=== PATIENT | female | born 1990 | race African-American/Black ===

== ENCOUNTER 2017-08-29 15:34 | Emergency (ER) | payer SELFPAY ==
[2017-08-29] MEDS ORDERED: METOCLOPRAMIDE HCL INJ/PF 10 MG/2 ML SDV IM ONE (16:16)
[2017-08-29] MEDS ORDERED: DIPHENHYDRAMINE HCL 50 MG/ML VIAL IM ONE (16:16)
--- NOTE | 2017-08-29 16:23 | ER Document Report ---
ED Headache - General Chief Complaint: Headache Stated Complaint: HEADACHE Time Seen by Provider: 08/29/17 16:06 Mode of Arrival: Ambulatory Information source: Patient TRAVEL OUTSIDE OF THE [place] IN LAST 30 DAYS: No - HPI Patient complains to provider of: Headache Notes: Patient is here with complaints of headache. The patient is 17 weeks . This is her fifth . She has had no problems with this . She has a history of headaches in the past, but states she has not had one in a while. States that this headache was gradual onset 3 days ago and has progressively worsened over time. It is generalized. She does have some mild photophobia with it. She has nausea, and states that she was vomiting a few days ago, but the vomiting has stopped. She denies head injury. She denies blood thinners. She denies fever. She denies any blurred or loss vision. She denies any unilateral numbness, tingling, weakness. No chest pain or shortness of breath. No rash. She denies any history of preeclampsia. No leg swelling. She has no other complaints at this time. She states she has taken Tylenol without relief. - Related Data Allergies/Adverse Reactions: No Known Allergies Allergy (Unverified 08/29/17 15:39) Past Medical History - Social History Smoking Status: Unknown if Ever Smoked Family History: Reviewed & Not Pertinent Review of Systems - Review of Systems -: Yes All other systems reviewed and negative Physical Exam - Notes Notes: GENERAL: alert, cooperative, nontoxic, no distress. HEAD: normocephalic, atraumatic EYES: conjunctiva pink without discharge, no external redness or swelling. Pupils are equal, round, reactive to light. EARS: no external swelling, no external redness NOSE: atraumatic, no external swelling MOUTH/THROAT: mucous membranes moist and pink, posterior pharynx without erythema, swelling, exudate. No trismus or drooling. NECK: soft, supple, full range of motion, no meningismus. CHEST: no distress, lungs clear and equal throughout. No wheezing, rales, rhonchi. CARDIAC: regular rate and rhythm, no murmur, normal capillary refill, normal pulses. No peripheral edema noted. BACK: full range of motion, no CVA tenderness. EXTREMITIES: full range of motion of all extremities. No redness, no swelling. NEURO: alert and oriented x 3, cranial nerves II through XII are grossly intact. Upper and lower extremities are equal throughout. Normal sensation. No focal deficits, full range of motion of all extremities. normal finger to nose. PYSCH: appropriate mood, affect. Patient is cooperative. SKIN: pink, warm, dry, no rash. Course - Re-evaluation Re-evalutation: 08/29/17 16:21 Patient is nontoxic appearing with stable vitals. The patient is here with complaints of headache. She is 17 weeks . She denies any head injury. She is on no blood thinners. She denies fever. She is a prior history of headaches. This was not a sudden onset, thunderclap headache. It was gradual and progressively worsening. She has a nonfocal neurological exam. No signs of subarachnoid hemorrhage or meningitis. She has no leg swelling. She is not hypertensive. Patient will be given a shot of Reglan and Benadryl here in emergency department will be discharged home with instructions to follow-up with her WIRELESS TELEGRAPHER as scheduled in 2 days. She is to follow-up sooner if she develops worsening pain, fever, numbness, tingling, weakness, fever, neck stiffness, persistent vomiting, or for any further concerns. The patient is noted to have elevated blood pressure during today's emergency department visit. The patient was informed of this finding. The patient was instructed that this may be related to pre-hypertension and requires further evaluation with a primary care provider. The patient has no hypertensive symptoms at this time. The patient's emergency department workup and current diagnosis were explained to the patient and or family. Follow-up instructions were provided. Medications if prescribed were discussed. Instructions for when to return to the emergency department including specific worrisome symptoms were discussed with the patient and/or family. Discharge - Discharge Clinical Impression: Headache Qualifiers: Headache type: unspecified Headache chronicity pattern: acute headache Intractability: not intractable Qualified Code(s): R51 - Headache Condition: Stable Disposition: HOME, SELF-CARE Instructions: Intravenous Compazine for Headaches ([facility]), Headache ([facility]), Use of Diphenhydramine Additional Instructions: You can continue to take Tylenol as needed for pain. Drink plenty fluids. Follow-up with your doctor as scheduled in 2 days. Follow-up sooner for worsening pain, fever, blurred or loss vision, numbness, tingling, weakness, persistent vomiting, or for any further concerns. Your blood pressure was elevated during today's visit. Have this rechecked with your doctor. Forms: Elevated Blood Pressure Referrals: [facility] [Provider Group] - Follow up as needed
[2017-08-29 16:44] VITALS: BP 134/69
== END 2017-08-29 16:44 | disposition home or self-care (01) ==
LOC: ER 15:34
DX: O26.92 Pregnancy related conditions, unspecified, second trimester (principal); R51 Headache; R11.0 Nausea; Z3A.17 17 weeks gestation of pregnancy
CPT/HCPCS: 99283; 96372; J1200; J2765

== ENCOUNTER 2017-10-15 01:06 | Emergency (ER) | payer MEDICAID ==
[2017-10-15 02:27] LABS: ABSOLUTE LYMPHOCYTES (AUTO) 1.2 10^3/uL (0.5-4.7); ABSOLUTE MONOCYTES (AUTO) 0.5 10^3/uL (0.1-1.4); BASOPHILS % (AUTO) 0.5 % (0-2); EOSINOPHILS % (AUTO) 0.4 % (0-6); HEMATOCRIT 38.2 % (36.0-47.0); HEMOGLOBIN 13.3 g/dL (12.0-15.5); LYMPHOCYTES % (AUTO) 12.2 % (13-45); MEAN CORPUSCULAR HEMOGLOBIN 32.9 pg (27.0-33.4); MEAN CORPUSCULAR HGB CONC 34.8 g/dL (32.0-36.0); MEAN CORPUSCULAR VOLUME 95 fl (80-97); MONOCYTES % (AUTO) 5.3 % (3-13); PLATELET COUNT 271 10^3/uL (150-450); RED BLOOD COUNT 4.04 10^6/uL (3.72-5.28); RED CELL DISTRIBUTION WIDTH 13.4 % (11.5-14.0); SEGMENTED NEUTROPHILS % (AUTO) 81.6 % (42-78); TOTAL CELLS COUNTED % (AUTO) 100 %; WHITE BLOOD COUNT 9.8 10^3/uL (4.0-10.5)
[2017-10-15] MEDS ORDERED: NORMAL SALINE 1000 ML 1,000 ML IV ONE ×2 (02:27→04:40)
[2017-10-15] MEDS ORDERED: METOCLOPRAMIDE HCL INJ/PF 10 MG/2 ML SDV IV ONE (02:27)
--- NOTE | 2017-10-15 02:28 | ER Document Report ---
ED GI/ - General Chief Complaint: Nausea/Vomiting/Diarrhea Stated Complaint: VOMITING STOMACH PAIN Time Seen by Provider: 10/15/17 02:20 Notes: Patient is a 27-year-old female, at 23 weeks gestation by ultrasound, the comes emergency department for chief complaint of vomiting, diarrhea, dehydration. She states she has vomited 5 times today, nonbloody, she had 3 episodes of loose stools, nonbloody. She denies fever or chills, obvious sick contacts, recent antibiotics, suspicious foods, or recent travel. She is on vitamins, takes no other daily medications, denies any medical history including surgeries. TRAVEL OUTSIDE OF THE [place] IN LAST 30 DAYS: No - Related Data Allergies/Adverse Reactions: No Known Allergies Allergy (Verified 10/15/17 02:28) Past Medical History - General Information source: Patient - Social History Smoking Status: Never Smoker Frequency of alcohol use: None Drug Abuse: None Lives with: Family Family History: Reviewed & Not Pertinent - Medical History Medical History: Negative Renal/ Medical History: Denies: Hx Peritoneal Dialysis Surgical Hx: Negative - Immunizations Immunizations up to date: Yes Hx Diphtheria, Pertussis, Tetanus Vaccination: Yes Review of Systems - Review of Systems Constitutional: No symptoms reported EENT: No symptoms reported Cardiovascular: No symptoms reported Respiratory: No symptoms reported Gastrointestinal: See HPI Genitourinary: See HPI Female Genitourinary: See HPI Musculoskeletal: No symptoms reported Skin: No symptoms reported Hematologic/Lymphatic: No symptoms reported Neurological/Psychological: No symptoms reported Physical Exam - Vital signs Vitals: Temp Pulse Resp BP Pulse Ox 98.9 F 105 H 18 121/68 97 10/15/17 01:20 10/15/17 01:20 10/15/17 01:20 10/15/17 01:20 10/15/17 01:20 - Notes Notes: GENERAL: Alert, interacts well. No acute distress. HEAD: Normocephalic, atraumatic. EYES: Pupils equal, round, and reactive to light. Extraocular movements intact. ENT: Oral mucosa dry, tongue midline. NECK: Full range of motion. Supple. Trachea midline. LUNGS: Clear to auscultation bilaterally, no wheezes, rales, or rhonchi. No respiratory distress. HEART: Mild tachycardia, normal rhythm. No murmur ABDOMEN: Gravid abdomen. There is some mild tenderness in the left upper and left lower quadrant, otherwise unremarkable. No guarding, no rigidity. EXTREMITIES: Moves all 4 extremities spontaneously. No edema, normal radial and dorsalis pedis pulses bilaterally. No cyanosis. BACK: no cervical, thoracic, lumbar midline tenderness. No saddle anesthesia, normal distal neurovascular exam. NEUROLOGICAL: Alert and oriented x3. Normal speech. [cranial nerves II through XII grossly intact]. PSYCH: Normal affect, normal mood. SKIN: Warm, dry, normal turgor. No rashes or lesions noted. Course - Re-evaluation Re-evalutation: Patient is very well-appearing on exam, borderline tachycardia, slight tenderness in the left abdomen. After medications for nausea, symptoms improved , give Pepcid, symptoms resolved, tolerating p.o. without difficulty. CBC, chemistry unremarkable. With her vomiting, diarrhea, workup, assessment I suspect this is a viral syndrome. Ultrasound/Doppler done at bedside, shows good movement, Doppler at 156 beats per minute. Urine shows 80 ketones, elevated specific gravity, possible urinary tract infection. Discussed with patient. Will place on Keflex, provided with nausea medications, discussed evaluation by PROTEOMICS SCIENTIST upstairs because of abdominal pain and her being 20+ weeks but patient refuses. She states she is ready to go home. Discussed return precautions in detail. Stable at time of discharge. - Vital Signs Vital signs: Temp Pulse Resp BP Pulse Ox 98.6 F 92 21 H 114/66 99 10/15/17 04:52 10/15/17 04:52 10/15/17 04:52 10/15/17 04:52 10/15/17 04:52 - Laboratory Result Diagrams: 10/15/17 02:04 10/15/17 02:04 Laboratory results interpreted by me: 10/15/17 10/15/17 10/15/17 01:24 02:04 02:04 Seg Neutrophils % 81.6 H Lymphocytes % 12.2 L AST 5 L Urine Protein 30 H Urine Ketones 80 H Ur Leukocyte Esterase SMALL H Urine Ascorbic Acid 40 H Urine HCG, Qual POSITIVE H Discharge - Discharge Clinical Impression: Nausea vomiting and diarrhea, Dehydration Condition: Stable Disposition: HOME, SELF-CARE Additional Instructions: Your workup indicates dehydration. Also indicates developing urinary tract infection. Take Reglan for nausea, you can take Benadryl with this as well for nausea, take Keflex antibiotic as prescribed. Drink plenty fluids and rest. This is probably viral and should resolve with time. Follow-up closely with your primary provider. Return for any concerning or worsening symptoms including severe abdominal pain , spiking fever, uncontrolled vomiting, passing out, or any other concerning or worsening symptoms. Prescriptions: Cephalexin Monohydrate [Keflex 500 mg Capsule] 500 mg PO BID #10 capsule Metoclopramide HCl [Reglan] 5 mg PO ASDIR PRN #30 tablet PRN Reason: Referrals: JOSE GOODSON PA-C [Primary Care Provider] - Follow up as needed
[2017-10-15 02:55] LABS: ALANINE AMINOTRANSFERASE 20 U/L (9-52); ALBUMIN 3.9 g/dL (3.5-5.0); ALKALINE PHOSPHATASE 68 U/L (38-126); ANION GAP 8 (5-19); ASPARTATE AMINO TRANSFERASE 5 U/L (14-36); BILIRUBIN,DIRECT 0.3 mg/dL (0.0-0.4); BILIRUBIN,TOTAL 0.4 mg/dL (0.2-1.3); BLOOD UREA NITROGEN 7 mg/dL (7-20); CARBON DIOXIDE 23 mmol/L (22-30); CHLORIDE 106 mmol/L (98-107); GLUCOSE 84 mg/dL (75-110); POTASSIUM 3.8 mmol/L (3.6-5.0); SODIUM 137.4 mmol/L (137-145)
[2017-10-15 04:18] LABS: AMORPHOUS SEDIMENT,URINE TRACE /HPF; APPEARANCE,URINE TURBID; BILIRUBIN,URINE NEGATIVE (NEGATIVE); COLOR,URINE YELLOW; GLUCOSE, URINE NEGATIVE (NEGATIVE); KETONES,URINE 80 mg/dL (NEGATIVE); LEUKOCYTE ESTERASE,URINE SMALL (NEGATIVE); NITRITE,URINE NEGATIVE (NEGATIVE); PROTEIN,URINE 30 mg/dL (NEGATIVE); URINE SPECIFIC GRAVITY 1.025; UROBILINOGEN,URINE NEGATIVE mg/dL (<2.0)
[2017-10-15] MEDS ORDERED: FAMOTIDINE 20 MG TABLET PO ONE (04:40)
[2017-10-15 04:58] VITALS: BP 114/66
[2017-10-15] MEDS ORDERED: ONDANSETRON ODT 4 MG TAB (6 TAB/ER DISP) PO PRN (05:56)
== END 2017-10-15 06:02 | disposition home or self-care (01) ==
LOC: ER 01:06
DX: O21.9 Vomiting of pregnancy, unspecified (principal); O26.892 Other specified pregnancy related conditions, second trimester; R19.7 Diarrhea, unspecified; E86.0 Dehydration; Z3A.23 23 weeks gestation of pregnancy
CPT/HCPCS: 99284; 96361; 96374; 36415; 85025; 81025; 80053; 81001; J3490; J2765; J7030

== ENCOUNTER 2018-01-29 17:23 | Outpatient (CLI) | payer MEDICAID | END 2018-01-29 19:00 | disposition home or self-care (01) | LOC: LC 17:23 | PROVIDERS: ATTEND Obstetrics & Gynecology | PROC: 4A1HXCZ Monitoring of Products of Conception, Cardiac Rate, External Approach (ICD-10-PCS; principal; 2018-01-29) | DX: O36.5930 Maternal care for other known or suspected poor fetal growth, third trimester, not applicable or unspecified (principal); Z3A.38 38 weeks gestation of pregnancy | CPT/HCPCS: 59025 ==

== ENCOUNTER 2018-02-05 07:00 | Inpatient (IN) | payer MEDICAID ==
[2018-02-05] MEDS ORDERED: OXYTOCIN/NORMAL SALINE 20 UNIT/1,000 ML RTUINJ IV PRN ×2 (07:02→18:25)
[2018-02-05] MEDS ORDERED: RINGERS SOLUTION,LACTATED 300 ML IV ONE (07:02)
[2018-02-05] MEDS ORDERED: PENICILLIN G POTASSIUM 5,000,000 UNIT in DEXTROSE 5%-WATER 100 ML IV ONE (07:02)
[2018-02-05] MEDS ORDERED: PENICILLIN G-K 5 MILLION UNIT VIAL IV ONE (07:15)
[2018-02-05 07:49] LABS: ABSOLUTE EOSINOPHILS # (AUTO) 0.1 10^3/uL (0.0-0.6); ABSOLUTE LYMPHOCYTES (AUTO) 2.1 10^3/uL (0.5-4.7); ABSOLUTE MONOCYTES (AUTO) 0.7 10^3/uL (0.1-1.4); ABSOLUTE NEUT (AUTO) 5.5 10^3/uL (1.7-8.2); BASOPHILS % (AUTO) 0.3 % (0-2); HEMATOCRIT 32.4 % (36.0-47.0); HEMOGLOBIN 11.2 g/dL (12.0-15.5); LYMPHOCYTES % (AUTO) 25.3 % (13-45); MEAN CORPUSCULAR HEMOGLOBIN 31.6 pg (27.0-33.4); MEAN CORPUSCULAR HGB CONC 34.7 g/dL (32.0-36.0); MEAN CORPUSCULAR VOLUME 91 fl (80-97); PLATELET COUNT 318 10^3/uL (150-450); RED BLOOD COUNT 3.55 10^6/uL (3.72-5.28); RED CELL DISTRIBUTION WIDTH 13.8 % (11.5-14.0); SEGMENTED NEUTROPHILS % (AUTO) 65.4 % (42-78); TOTAL CELLS COUNTED % (AUTO) 100 %; WHITE BLOOD COUNT 8.4 10^3/uL (4.0-10.5)
[2018-02-05] MEDS ORDERED: OXYTOCIN 10 UNIT/ML VIAL ONE (07:56)
[2018-02-05] MEDS ORDERED: LIDOCAINE 1% INJ-PF (10 MG/ML) 30 ML SDV ONE (07:56)
[2018-02-05] MEDS ORDERED: MISOPROSTOL 0.2 MG TABLET ONE (07:56)
[2018-02-05] MEDS ORDERED: PENICILLIN G-K 5 MILLION UNIT VIAL ONE ×3 (07:57→15:59)
[2018-02-05] MEDS ORDERED: OXYTOCIN/NORMAL SALINE 20 UNIT/1,000 ML RTUINJ ONE (07:57)
[2018-02-05 08:15] LABS: URINE AMPHETAMINES SCREEN NEGATIVE; URINE BARBITURATES SCREEN NEGATIVE; URINE BENZODIAZEPINES SCREEN NEGATIVE; URINE COCAINE SCREEN NEGATIVE; URINE METHADONE SCREEN NEGATIVE; URINE PHENCYCLIDINE SCREEN NEGATIVE
[2018-02-05 08:24] LABS: URINE MARIJUANA (THC) SCREEN UNCONFIRMED POSITIVE
[2018-02-05] MEDS: RINGERS SOLUTION,LACTATED 1,000 ML IV PRN ×3 (08:24→15:48)
--- NOTE | 2018-02-05 09:38 | Admission Physical ---
Datetime Report Generated by CPN: 02/05/2018 09:37 CURRENT ADMISSION Hx Assessment: The History has been Reviewed and is Current Chief Complaint: Scheduled Induction of Labor Indication for Induction: IUGR Admit Impression : Term, Intrauterine Admit Plan: Admit to Unit; Initiate Labor Induction Protocol ALLERGIES Medication Allergies: No Medication Allergies: No Known Allergies (02/05/2018) Latex: No Latex Allergies Food Allergies: N/A Environmental Allergies: N/A OBSTETRICAL HISTORY EDC: 02/08/2018 00:00 : 5 Para: 2 Term: 2 : 0 SAB: 2 IAB: 0 Ectopic: 0 Livin Cesareans: 0 VBACs: 0 Multiple Births: 0 Gestational Diabetes: No Rh Sensitization: No Incompetent Cervix: No ABEL: No Infertility: No ART Treatment: No Uterine Anomaly: No IUGR: Yes Hx Previous C/S: No Macrosomia: No Hx Loss/Stillborn: No PIH: No Hx : No Placenta Previa/Abruption: No Depression/PP Depression: No PTL/PROM: No Post Hemorrhage: No Current Procedures: Ultrasound; NST Obstetrical History Comments: G1 - 2007, 40 Weeks, 6 lbs 14 oz girl G2 - SAB 2012 G3 - 2013, 39 Weeks, 6 lbs 11 oz girl G4 - SAB 2016 G5 - Current, IUGR SEE RECORDS Alcohol: No Marijuana : Yes Marijuana Frequency: Occasional Last Used: 01/22/2018 00:00 Previous Treatment: None Cocaine: No Other Illicit Drugs: No Cigarettes: Former Smoker. [id number] Cigarette Frequency: < 5 per day Advised to Stop: Yes Cigarette Comments: QUIT WITH MEDICAL HISTORY Diabetes: No Blood Transfusion: No Pulmonary Disease (Asthma, TB): No Breast Disease: No Hypertension: No Compliance Tester Surgery: No Heart Disease: No Hosp/Surgery: Yes Autoimmune Disorder: No Anesthetic Complications: No Kidney Disease: No Abnormal Pap Smear: No Neuro/Epilepsy: No Psychiatric Disorders: No Other Medical Diseases: No Hepatitis/Liver Disease: No Significant Family History: No Varicosities/Phlebitis: No Trauma/Violence : No Thyroid Dysfunction: No Medical History Comments: Childbirth INFECTIOUS HISTORY Gonorrhea: No Genital Herpes: No Chlamydia: Yes Tuberculosis: No Syphilis: No Hepatitis: No HIV/AIDS Exposure: No Rash or Viral Illness: No HPV: No Infectious History Comments: Chlamydia PHYSICAL EXAM General: Normal Heart: Normal Lungs: Normal Genitourinary Exam: Normal Extremities: Normal Pelvic Type: Adequate Physical Exam Comments: proven to 6lbs 8oz Vital Signs: Reviewed VAGINAL EXAM Dilatation: 5 Effacement: 70 Station: -2 Contraction Comments: irregular MEMBRANES Membranes: Intact FETUS A EGA: 39.4 Monitoring: External US FHR- Baseline: 125 Variability: Moderate 6-25bpm Accelerations: 15X15 Decelerations: None FHR Category: Category I Estimated Weight (gm): 2777 Presentation: Vertex Admit Comment: 27yo into L_D for scheduled IOL secondary to IUGR. Pt. is O pos, rubella immune, GBS positive. Hx of chlamydia and no complications with this . late transfer into our office. Denies concerns. Will initiate pitocin induction at this time. First dose of penicillin given. PLANS FOR LABOR AND DELIVERY Labor and Delivery: None Pain Management: Epidural Feeding Preference: Breast Benefit of Breast Feed Discussed: Yes Circumcision: Yes INFORMED CONSENT Assignment: Lora Rashid MD Signature: with User ID: [email or web address] : with User ID: [email or web address]
[2018-02-05] MEDS ORDERED: PENICILLIN G POTASSIUM 2,500,000 UNIT in DEXTROSE 5%-WATER 50 ML IV SCH (11:04)
[2018-02-05] MEDS: PENICILLIN G-K 5 MILLION UNIT VIAL IV SCH ×2 (12:04→16:05)
--- NOTE | 2018-02-05 14:07 | L&D Progress Notes ---
PROGRESS NOTES Datetime Report Generated by CPN: 02/05/2018 14:06 PROGRESS NOTE Impression: Reassuring Heart Rate; Rupture of Membranes Procedures: Artificial ROM; Sterile Vag Exam Plan: Continue Present Management Informed Consent Obtained: Vaginal Delivery; Induction of Labor; Risks, Benefits and Alternatives Discussed Vital Signs : Reviewed; Within Normal Limits Comment: S: breathing with contractions thinking about epidural for pain control soon O:VSS, pit @ 20mu/min, cervix as stated, Cat I tracing A: IUP @ 63v6w-MMK for IUGR-stable, progressing, P:AROM-clear fluid, tolerated procedure well, epidural prn, anticipate delivery VAGINAL EXAM Dilatation: 6 Dilatation: 5 Effacement: 80 Effacement: 70 Station: -1 Station: -2 Contractions: 2-3 Contractions: irregular MEMBRANES Membranes: Ruptured Membranes: Intact Amniotic Fluid Color: Clear FETUS A Monitoring: External US FHR Category: Category I Estimated Weight (gm): 2777 Presentation: Vertex SIGNATURE SIGNATURE: [id number] SIGNATURE: [id number] Assignment: Lora Rashid MD Signature: with User ID: [email or web address] : with User ID: [email or web address]
[2018-02-05] MEDS ORDERED: EPHEDRINE SULFATE INJ 50 MG/1 ML AMPULE ONE (14:17)
[2018-02-05] MEDS ORDERED: BUPIVACAINE HCL 0.5 % INJ/PF 30 ML SDV ONE (14:17)
[2018-02-05] MEDS ORDERED: GLYCOPYRROLATE INJ 0.4 MG/2 ML VIAL ONE (14:18)
[2018-02-05] MEDS ORDERED: FENTANYL/BUPIVACAINE/NS/PF 300 MCG/150 ML RTUINJ EPI ONE (14:19)
--- NOTE | 2018-02-05 16:29 | L&D Progress Notes ---
PROGRESS NOTES Datetime Report Generated by CPN: 02/05/2018 16:29 PROGRESS NOTE Impression Other: IUP @ 03h4-UIJ Procedures: Sterile Vag Exam Plan: Continue Present Management Informed Consent Obtained: Vaginal Delivery; Induction of Labor; Risks, Benefits and Alternatives Discussed Vital Signs : Reviewed; Within Normal Limits Comment: S: reports complete relief of pain w epidural O: VSS, cervix as stated, pit @ 20mu/min A: IUP @ 39w4d IOL for IUGR-progressing, stable P: continue IOL, anticipate delivery VAGINAL EXAM Dilatation: 7 Effacement: 100 Station: 0 Contractions: 2-4 MEMBRANES Amniotic Fluid Color: Clear FETUS A FHR - Baseline: 125 Monitoring: External US Variability: Moderate 6-25bpm Accelerations: 15X15 Decelerations: Early; Variable FHR Category: Category II FETUS C SIGNATURE: [id number];[id number] Assignment: Lora Younger Eure, MD Signature: with User ID: [email or web address] : with User ID: [email or web address]
[2018-02-05] MEDS ORDERED: BENZOCAINE/MENTHOL AEROSOL SPRAY 56 ML TOP PRN (18:25)
[2018-02-05] MEDS ORDERED: ACETAMINOPHEN WITH CODEINE #3 TABLET PO PRN (18:25)
[2018-02-05] MEDS ORDERED: DIBUCAINE 1% OINTMENT 28 GM TP PRN (18:25)
[2018-02-05] MEDS ORDERED: DIPH/PERTUSS(ACELL)/TETANUS VAC/PF 0.5 ML SYR (>=10YO) IM PRN (18:25)
[2018-02-05] MEDS ORDERED: ZOLPIDEM TARTRATE 5 MG TABLET PO PRN (18:25)
--- NOTE | 2018-02-05 18:25 | PDOC DELIVERY SUMMARY ---
Delivery Summary - Maternal Hx : III Hx Para: II Hx # Term Pregnancies: 2 Hx # Pregnancies: 0 Hx Total # of Abortions (Sponateous & Elective): 0 Number of Living Children: 2 SOBEIDA: 02/08/18 Gestational Age: 39.4 Risk Factors: Other - IUGR Ruptured Membranes: AROM Time of Rupture: 13:57 Fluids: Clear - Delivery Labor: Induction Presentation: Vertex Heart Rate Monitoring: Externally Uterine Contraction Monitoring: External Pattern: Late Decels Support Person Present: Yes Location: LD Placenta: Within Normal Limits - small cord Number of Vessels (Cord): 3 Delivery of Placenta Date: 02/05/18 Delivery of Placenta Time: 18:12 Estimated Blood Loss: 400 ml - Medications Type of Anesthesia:: Epidural - Delivery Personnel MD: SAVAGE COOPER
[2018-02-05] MEDS ORDERED: IBUPROFEN 800 MG TABLET ONE (20:58)
[2018-02-05] MEDS: IBUPROFEN 800 MG TABLET PO SCH (21:00)
[2018-02-06] MEDS: ACETAMINOPHEN WITH CODEINE #3 TABLET PO PRN ×2 (00:26→10:07)
[2018-02-06] MEDS: IBUPROFEN 800 MG TABLET PO SCH ×3 (05:50→21:15)
[2018-02-06 08:37] LABS: HEMATOCRIT 28.8 % (36.0-47.0); HEMOGLOBIN 10.2 g/dL (12.0-15.5); MEAN CORPUSCULAR HEMOGLOBIN 32.3 pg (27.0-33.4); MEAN CORPUSCULAR HGB CONC 35.3 g/dL (32.0-36.0); MEAN CORPUSCULAR VOLUME 92 fl (80-97); PLATELET COUNT 258 10^3/uL (150-450); RED BLOOD COUNT 3.15 10^6/uL (3.72-5.28); RED CELL DISTRIBUTION WIDTH 13.6 % (11.5-14.0); WHITE BLOOD COUNT 9.7 10^3/uL (4.0-10.5)
--- NOTE | 2018-02-06 08:59 | PDOC PROGRESS REPORT ---
Subjective-OB Progress Note for:: 02/06/18 Subjective: Doing well, no c/o, family at BS, no circumcision, breast and bottle feeding Physical Exam (OB) Vital Signs: Temp Pulse Resp BP Pulse Ox 97.8 F 69 18 105/55 L 97 02/06/18 07:40 02/06/18 07:40 02/06/18 07:40 02/06/18 07:40 02/06/18 07:40 Intake & Output 02/05/18 02/06/18 02/07/18 06:59 06:59 06:59 Intake Total 2165 Balance 2165 Weight 85.4 kg - PIH/Pre-Eclampsia Clonus: Negative Headache: Absent Epigastric Pain: No Visual Changes: No - Lochia Lochia Amount: Scant < 10 ml Lochia Color: Rubra/Red - Abdomen Description: Soft Hernia Present: No Fundal Description: Firm, Midline Fundal Height: u/u - u/2 Objective-Diagnostic Laboratory: 02/06/18 08:04 02/06/18 08:04 WBC 9.7 RBC 3.15 L Hgb 10.2 L Hct 28.8 L MCV 92 MCH 32.3 MCHC 35.3 RDW 13.6 Plt Count 258 Assessment and Plan(PN) - Assessment and Plan (1) Delivery normal Is this a current diagnosis for this admission?: Yes (2) GBS (group B Streptococcus carrier), +RV culture, currently Is this a current diagnosis for this admission?: Yes (3) Intrauterine growth restriction affecting antepartum care of mother Qualifiers: Fetus number: single or unspecified fetus Qualified Code(s): O36.5990 - Maternal care for other known or suspected poor growth, unspecified trimester, not applicable or unspecified Is this a current diagnosis for this admission?: Yes - Time Spent with Patient Time with patient: Less than 15 minutes Medications reviewed and adjusted accordingly: Yes - Disposition Anticipated Discharge: Home Within: within 24 hours
[2018-02-06] MEDS: SENNOSIDES/DOCUSATE 8.6-50 MG 1 EACH TABLET PO SCH (09:38)
[2018-02-06] MEDS: FERROUS SULFATE 325 MG TABLET PO SCH ×2 (09:38→17:38)
[2018-02-06] MEDS: DOCUSATE SODIUM 100 MG CAPSULE PO SCH ×2 (09:38→17:38)
[2018-02-06] MEDS: PRENATAL VITAMIN W DHA CAPSULE PO SCH (09:38)
[2018-02-07] MEDS: IBUPROFEN 800 MG TABLET PO SCH (05:00)
--- NOTE | 2018-02-07 08:29 | Delivery Summary ---
Del Sum A-C Datetime Report Generated by CPN: 02/07/2018 08:29 DELIVERY PERSONNEL DELIVERY PERSONNEL: [id number] Delivery Doctor:: Lora Rashid MD Labor and Delivery Nurse:: Nicole Edward RN Labor and Delivery Nurse:: Ana Solo RN Nursery Nurse:: Rere Hill RN Process Improvement Analyst/DIGITAL MARKETING LEAD: Arlen Cagle, DIGITAL MARKETING LEAD II MATERNAL INFORMATION Delivery Anesthesia: Epidural Medications After Delivery: Pitocin Bolus-Please Comment; Pitocin Drip 20 Units/1000ml NSS Meds After Delivery Comment: Pitocin 20 units in 1 L NS bolusing per order Maternal Complications: None LABOR SUMMARY EDC: 02/08/2018 00:00 No. Babies in Womb: 1 Attempted: No Labor Anesthesia: Epidural LABOR INFORMATION Reason for Induction: Intrauterine Growth Retardation Onset of Labor: 02/05/2018 09:00 Complete Dilatation: 02/05/2018 17:18 Oxytocin: Induction Group B Beta Strep: Positive Antibiotics # of Doses: 3 Antibiotics Time of Last Dose: 1605 Name of Antibiotic Given: PENICILLIN G Steroids Given: None Reason Steroids Not Administered: Not Applicable MEMBRANES Membranes Rupture Method: Artificial Rupture of Membranes: 02/05/2018 13:57 Length of Rupture (hr): 4.18 Amniotic Fluid Color: Clear Amniotic Fluid Amount: Moderate Amniotic Fluid Odor: None STAGES OF LABOR Stage 1 hr: 8 Stage 1 min: 18 Stage 2 hr: 0 Stage 2 min: 50 Stage 3 hr: 0 Stage 3 min: 4 Total Time in Labor hr: 9 Total Time in Labor min: 12 VAGINAL DELIVERY Episiotomy: None Laceration #1: None Laceration Extension #1: N/A Laceration #2: None Laceration Repair: Not Applicable Sponge Count Correct: N/A Sharps Count Correct: N/A CSECTION DELIVERY Primary Indication: N/A Secondary Indication: N/A CSection Incidence: N/A Labor: N/A Elective: N/A CSection Incision: N/A BABY A INFORMATION Infant Delivery Date/Time: 02/05/2018 18:08 Method of Delivery: Vaginal Method of Delivery: Vaginal Born in Route : No : N/A Forceps: N/A Vacuum Extraction: N/A Shoulder Dystocia : No PRESENTATION/POSITION BABY A Presentation: Cephalic Presentation: Cephalic Presentation: Cephalic Presentation: Cephalic Cephalic Presentation: Vertex Vertex Position: Right Occipital Anterior Breech Presentation: N/A PLACENTA INFORMATION BABY A Placenta Delivery Time : 02/05/2018 18:12 Placenta Method of Delivery: Spontaneous Placenta Status: Delivered SCORES BABY A Heart Rate 1 min: >100 bpm Resp Effort 1 min: Good Cry Reflex Irritability 1 min: Cough or Sneeze or Pulls Away Muscle Tone 1 min: Active Motion Color 1 min: Blue/Pale SCORE 1 MIN: 8 Heart Rate 5 min: >100 bpm Resp Effort 5 min: Good Cry Reflex Irritability 5 min: Cough or Sneeze or Pulls Away Muscle Tone 5 min: Active Motion Color 5 min: Body [place], Extremities Blue SCORE 5 MIN: 9 INFORMATION BABY A Gestational Age at Delivery: 39.4 Gestational Status: Full Term- 39- 40.6 Weeks Outcome : Liveborn Condition : Stable Infant Sex: Male Infant Sex: Male IDENTIFICATION BABY A Verification Date/Time: 02/05/2018 18:24 ID Band Number: [id number] Mother's Name Verified: Yes RN Verifying : Adrien Solo, RN, B. Baidy, RN WEIGHT/LENGTH BABY A Infant Birthweight (gm): 2910 Weight (lb): 6 Weight (oz): 7 Length (in): 19.50 Infant Length (cm): 49.53 CORD INFORMATION BABY A No. Cord Vessels: 3 Nuchal Cord : Around Neck x1, Loose Nuchal Cord- Other: body cord Cord Blood Taken: Yes-For Eval (Mom's Blood Type - or O+) Suction: Mouth; Nose ASSESSMENT BABY A Complications: Multiple Variable Decels Physical Findings at Delivery: Molding of the Head Respirations: Appears Normal Skin to Skin: Yes Boat Engine Mechanic/ALS Called : No Care By: Shaila Lisa RN Transferred To: Remains with Mother BABY B INFORMATION : N/A SIGNATURES Signature: with User ID: [email or web address]
--- NOTE | 2018-02-07 09:33 | PDOC DISCHARGE SUMMARY ---
Final Diagnosis Discharge Date: 02/07/18 - PP Day #2, doing well, no complaints - Final Diagnosis (1) normal course Is this a current diagnosis for this admission?: Yes (2) Tetrahydrocannabinol (THC) use disorder, mild, abuse Is this a current diagnosis for this admission?: Yes (3) Delivery normal Is this a current diagnosis for this admission?: Yes (4) GBS (group B Streptococcus carrier), +RV culture, currently Is this a current diagnosis for this admission?: Yes (5) Intrauterine growth restriction affecting antepartum care of mother Is this a current diagnosis for this admission?: Yes Discharge Data - Discharge Medication Prescriptions: Ibuprofen [Motrin 800 mg Tablet] 800 mg PO Q8 #60 tablet Home Medications: Omeprazole Magnesium [Prilosec Otc] 20 mg PO DAILY 01/29/18 Ibuprofen [Motrin 800 mg Tablet] 800 mg PO Q8 #60 tablet 02/07/18 Reason(s) for Admission: Induction of Labor, Other - for IUGR Procedures: NST, Ultrasound Intrapartum Procedure(s): Spontaneous Vaginal Delivery - Diagnosis Test Laboratory: Temp Pulse Resp BP Pulse Ox 98.3 F 65 18 97/51 L 95 02/07/18 07:31 02/07/18 07:31 02/07/18 07:31 02/07/18 07:31 02/06/18 19:52 02/05/18 02/05/18 02/06/18 07:05 07:28 08:04 RBC 3.55 L 3.15 L Hgb 11.2 L 10.2 L Hct 32.4 L 28.8 L Urine Opiates Screen NEGATIVE - Discharge information/Instructions Discharge Activity: Activity As Tolerated, No Lifting Over 10 Pounds Discharge Diet: As Tolerated, Regular Disposition: HOME, SELF-CARE Follow up with: [facility] in: 4, Weeks
[2018-02-07] MEDS: SENNOSIDES/DOCUSATE 8.6-50 MG 1 EACH TABLET PO SCH (10:31)
[2018-02-07] MEDS: PRENATAL VITAMIN W DHA CAPSULE PO SCH (10:31)
[2018-02-07] MEDS: FERROUS SULFATE 325 MG TABLET PO SCH (10:31)
[2018-02-07] MEDS: DOCUSATE SODIUM 100 MG CAPSULE PO SCH (11:28)
[2018-02-07] MEDS: ACETAMINOPHEN WITH CODEINE #3 TABLET PO PRN (11:30)
[2018-02-07 12:06] VITALS: BP 111/57
== END 2018-02-07 12:45 | disposition home or self-care (01) | DRG 806 ==
LOC: LR 07:00 → 2S 20:25
PROVIDERS: ADMIT Obstetrics & Gynecology; ATTEND Obstetrics & Gynecology
PROC: 10E0XZZ Delivery of Products of Conception, External Approach (ICD-10-PCS; principal; 2018-02-05)
DX: O36.5930 Maternal care for other known or suspected poor fetal growth, third trimester, not applicable or unspecified (principal); O99.324 Drug use complicating childbirth; Z37.0 Single live birth; F12.90 Cannabis use, unspecified, uncomplicated; O99.824 Streptococcus B carrier state complicating childbirth; O99.334 Smoking (tobacco) complicating childbirth; F17.211 Nicotine dependence, cigarettes, in remission; O76 Abnormality in fetal heart rate and rhythm complicating labor and delivery; O69.81X0 Labor and delivery complicated by cord around neck, without compression, not applicable or unspecified; Z3A.39 39 weeks gestation of pregnancy
CPT/HCPCS: 36415; 80307; 80349; 85025; 85027; 86592; 86850; 86900; 86901; 88307; 94760; G0480; J2540; J2590; J3010; J3490

== ENCOUNTER 2019-05-11 06:28 | Emergency (ER) | payer MEDICAID ==
--- NOTE | 2019-05-11 07:31 | ER Document Report ---
ED GI/ - General Chief Complaint: Vaginal Discharge Stated Complaint: ABDOMINAL PAIN/BLEEDING Time Seen by Provider: 05/11/19 07:08 Primary Care Provider: [facility] [Provider Group] - Follow up as needed Mode of Arrival: Ambulatory Information source: Patient Notes: 28-year-old female presented to ED for complaint of dark reddish-brown vaginal discharge spotting with a "knot in her vagina "she states it does not look like an abscess. She states her last menstrual period was April 28. TRAVEL OUTSIDE OF THE [place] IN LAST 30 DAYS: No - HPI Patient complains to provider of: Vaginal bleeding, Vaginal discharge, Vaginal pain Onset: This morning Timing/Duration: Gradual Quality of pain: No pain Severity at maximum: Severe Severity in ED: None Pain Level: Denies Vaginal bleeding (Compared to normal period): Spotting LMP: 04/28/2019 Associated symptoms: None Exacerbated by: Denies Relieved by: Denies Similar symptoms previously: No Recently seen / treated by doctor: No - Related Data Allergies/Adverse Reactions: No Known Allergies Allergy (Verified 02/05/18 07:07) Past Medical History - General Information source: Patient - Social History Smoking Status: Current Every Day Smoker Cigarette use (# per day): Yes - 10 cigarettes a day Smoking Education Provided: Yes - Minutes Frequency of alcohol use: Social Drug Abuse: Marijuana Occupation: [employer] Lives with: Family Family History: Reviewed & Not Pertinent Patient has suicidal ideation: No Patient has homicidal ideation: No - Past Medical History Cardiac Medical History: Reports: None Pulmonary Medical History: Reports: None EENT Medical History: Reports: None Neurological Medical History: Reports: None Endocrine Medical History: Reports: None Renal/ Medical History: Reports: None Malignancy Medical History: Reports: None GI Medical History: Reports: None Musculoskeletal Medical History: Reports Hx Musculoskeletal Trauma Skin Medical History: Reports None Psychiatric Medical History: Reports: None Traumatic Medical History: Reports: Hx Fractures - Clavicle Infectious Medical History: Reports: None Surgical Hx: Negative Past Surgical History: Reports: None - Immunizations Immunizations up to date: Yes Hx Diphtheria, Pertussis, Tetanus Vaccination: Yes - 2017 Review of Systems - Review of Systems Constitutional: No symptoms reported EENT: No symptoms reported Cardiovascular: No symptoms reported Respiratory: No symptoms reported Gastrointestinal: No symptoms reported Genitourinary: No symptoms reported Female Genitourinary: Vaginal discharge, Vaginal bleeding, Other - Left small nonpainful knot to the left labia Musculoskeletal: No symptoms reported Skin: No symptoms reported Hematologic/Lymphatic: No symptoms reported Neurological/Psychological: No symptoms reported Physical Exam - Vital signs Vitals: Temp Pulse Resp BP Pulse Ox 98.1 F 97 16 121/75 98 05/11/19 07:00 05/11/19 07:00 05/11/19 07:00 05/11/19 07:00 05/11/19 07:00 Interpretation: Normal - General General appearance: Appears well, Alert - HEENT Head: Normocephalic, Atraumatic Eyes: Normal Pupils: PERRL - Respiratory Respiratory status: No respiratory distress Chest status: Nontender Breath sounds: Normal Chest palpation: Normal - Cardiovascular Rhythm: Regular Heart sounds: Normal auscultation Murmur: No - Abdominal Inspection: Normal Distension: No distension Bowel sounds: Normal Tenderness: Nontender Organomegaly: No organomegaly - Genitourinary External exam: Other - Small nonpainful knot to the left labia Speculum exam: Vaginal discharge Vaginal bleeding: None Bimanuel exam: Normal - Back Back: Normal, Nontender - Extremities General upper extremity: Normal inspection, Nontender, Normal color, Normal ROM, Normal temperature General lower extremity: Normal inspection, Nontender, Normal color, Normal ROM, Normal temperature, Normal weight bearing. No: Viky's sign - Neurological Neuro grossly intact: Yes Cognition: Normal Orientation: AAOx4 Noelle Coma Scale Eye Opening: Spontaneous [place] Coma Scale Verbal: Oriented Noelle Coma Scale Motor: Obeys Commands Noelle Coma Scale Total: 15 Speech: Normal Motor strength normal: LUE, RUE, LLE, RLE Sensory: Normal - Psychological Associated symptoms: Normal affect, Normal mood - Skin Skin Temperature: Warm Skin Moisture: Dry Skin Color: Normal Course - Re-evaluation Re-evalutation: 05/11/19 09:20 4 discussed with patient and written report labs given to patient. GC and Chlamydia report is not back as yet. Patient was discharged home with instructions to call in a couple hours for the results of the GC and chlamydia. - Vital Signs Vital signs: Temp Pulse Resp BP Pulse Ox 98.1 F 80 16 118/72 99 05/11/19 09:10 05/11/19 09:10 05/11/19 09:10 05/11/19 09:10 05/11/19 09:10 - Laboratory Result Diagrams: 05/11/19 07:42 05/11/19 07:42 Laboratory results interpreted by me: 05/11/19 05/11/19 07:20 07:42 Potassium 3.5 L Leukocyte Esterase Rfl TRACE H Discharge - Discharge Clinical Impression: Bartholin cyst with no abscess, Vaginal bleeding Condition: Stable Disposition: HOME, SELF-CARE Additional Instructions: Bartholin Gland Cyst or Abcess The Bartholin glands are located on each side of the entrance to the vagina. These glands secrete lubricating fluid. If a gland becomes plugged, it can create a "Bartholin's cyst." This creates a large bulge on one side of the labia. A cyst is usually not very pa inful. If a Bartholin's cyst or gland becomes infected, it creates an abscess. This is a painful collection of pus. One side of the labia becomes swollen, red, and painful. It will be very painful to walk or sit. When a Bartholin's cyst causes mild symptoms, it can sometimes be treated with sitz baths and antibiotics. A painful abscess usually needs to be drained (lanced). If there are signs of infection in the tissues around the abscess, we prescribe antibiotics. Antibiotics are not always necessary for an abscess that's been drained. If packing has been placed, it's important to follow up as scheduled for removal or replacement of the packing. Return if you have increasing fever, body aches, lightheadedness, or if the swelling and pain is getting worse. Ibuprofen Ibuprofen is an excellent, safe drug for pain control. In addition, it has potent antiinflammatory effects which are beneficial, especially in the treatment of injuries, arthritis, or tendonitis. It's best to take ibuprofen with food. Persons with ulcer disease or allergy to aspirin should notify their physician of this before taking ibuprofen. Take the medication exactly as prescribed. Don't take additional doses unless instructed to do so by your doctor. If you develop wheezing, shortness of breath, hives, faintness, stomach pain, vomiting, or dark black stools, return for re-evaluation at once. FOLLOW-UP CARE: If you have been referred to a physician for follow-up care, call the physicians office for an appointment as you were instructed or within the next two days. If you experience worsening or a significant change in your symptoms, notify the physician immediately or return to the Emergency Department at any time for re-evaluation. Referrals: [facility] [Provider Group] - Follow up as needed
[2019-05-11 07:38] LABS: APPEARANCE,URINE SLIGHTLY-CLOUDY; BILIRUBIN,URINE NEGATIVE (NEGATIVE); COLOR,URINE YELLOW; GLUCOSE, URINE NEGATIVE (NEGATIVE); KETONES,URINE NEGATIVE (NEGATIVE); PROTEIN,URINE NEGATIVE (NEGATIVE); URINE SPECIFIC GRAVITY 1.015; UROBILINOGEN,URINE NEGATIVE mg/dL (<2.0)
[2019-05-11 07:50] LABS: BACTERIA (WET MOUNT) 3+ BACTERIA SEEN; RBCS (WET MOUNT) RARE RBCS SEEN; T.VAGINALIS (WET MOUNT) NO TRICHOMONAS SEEN; WBCS (WET MOUNT) 1+ WBCS SEEN; YEAST (WET MOUNT) NO YEAST SEEN
[2019-05-11 07:51] LABS: ABSOLUTE EOSINOPHILS # (AUTO) 0.1 10^3/uL (0.0-0.6); ABSOLUTE LYMPHOCYTES (AUTO) 1.6 10^3/uL (0.5-4.7); ABSOLUTE MONOCYTES (AUTO) 0.4 10^3/uL (0.1-1.4); ABSOLUTE NEUT (AUTO) 3.7 10^3/uL (1.7-8.2); BASOPHILS % (AUTO) 0.2 % (0-2); EOSINOPHILS % (AUTO) 0.9 % (0-6); HEMATOCRIT 37.6 % (36.0-47.0); LYMPHOCYTES % (AUTO) 27.3 % (13-45); MEAN CORPUSCULAR HEMOGLOBIN 32.4 pg (27.0-33.4); MEAN CORPUSCULAR HGB CONC 34.5 g/dL (32.0-36.0); MEAN CORPUSCULAR VOLUME 94 fl (80-97); PLATELET COUNT 257 10^3/uL (150-450); RED CELL DISTRIBUTION WIDTH 13.4 % (11.5-14.0); SEGMENTED NEUTROPHILS % (AUTO) 64.6 % (42-78); TOTAL CELLS COUNTED % (AUTO) 100 %; WHITE BLOOD COUNT 5.7 10^3/uL (4.0-10.5)
[2019-05-11 08:14] LABS: ALBUMIN 4.2 g/dL (3.5-5.0); ALKALINE PHOSPHATASE 74 U/L (38-126); ANION GAP 9 (5-19); ASPARTATE AMINO TRANSFERASE 17 U/L (14-36); BILIRUBIN,DIRECT 0.3 mg/dL (0.0-0.4); BILIRUBIN,TOTAL 0.4 mg/dL (0.2-1.3); BLOOD UREA NITROGEN 10 mg/dL (7-20); CALCIUM 9.1 mg/dL (8.4-10.2); CARBON DIOXIDE 26 mmol/L (22-30); CHLORIDE 107 mmol/L (98-107); GLUCOSE 91 mg/dL (75-110); POTASSIUM 3.5 mmol/L (3.6-5.0); TOTAL PROTEIN 7.4 g/dL (6.3-8.2)
[2019-05-11 09:19] VITALS: BP 118/72
[2019-05-11 09:21] LABS: CHLAM PCR DETECTED (NOT DETECT)
== END 2019-05-11 09:10 | disposition home or self-care (01) ==
LOC: ER 06:28
DX: N89.8 Other specified noninflammatory disorders of vagina (principal); R10.2 Pelvic and perineal pain; N93.8 Other specified abnormal uterine and vaginal bleeding; F17.210 Nicotine dependence, cigarettes, uncomplicated
CPT/HCPCS: 36415; 80053; 81001; 84702; 85025; 87086; 87088; 87210; 87491; 87591; 99283